=== PATIENT | female | born 2000 | race Caucasian/White ===

== ENCOUNTER 2018-09-26 22:39 | Emergency (ER) | payer SELFPAY ==
--- NOTE | 2018-09-26 23:50 | ULT ---
TRANSVAGINAL PELVIC ULTRASOUND WITH SU SCALE, COLOR FLOW AND SPECTRAL DOPPLER IMAGING 09/26/18 HISTORY: Right lower quadrant pain. FINDINGS: The uterus measures 8.1 x 5 x 5.3 cm. A single live intrauterine gestation is seen with measurements corresponding to an estimated gestational age of 6 weeks, 6 days and VINAY at 05/16/19. The crown-rump length measures 0.85 cm. The heart rate measures 125 beats per minute. The right ovary measures 3.8 x 2.4 x 2.6 cm and the left ovary measures 1.6 x 1.6 x 1.8 cm. Flow is d emonstrated to both ovaries. There is a 2 cm cyst in the right ovary. No free fluid is seen in the cu l-de-sac. IMPRESSION: Single live IUP of 6 weeks, 6 days estimated gestational age and VINAY at 05/16/19. POS: [facility]
[2018-09-28 19:02] LABS: Chlamydia by PCR Not Detected (NotDetected); GC by PCR Not Detected (NotDetected)
== END 2018-09-27 01:36 | disposition home or self-care (01) ==
LOC: ERS 22:39
DX: O20.0 Threatened abortion (principal); O23.41 Unspecified infection of urinary tract in pregnancy, first trimester; O99.331 Smoking (tobacco) complicating pregnancy, first trimester; F17.210 Nicotine dependence, cigarettes, uncomplicated; Z3A.01 Less than 8 weeks gestation of pregnancy
CPT/HCPCS: 36415; 76856; 86900; 86901; 87480; 87491; 87510; 87591; 87660

== ENCOUNTER 2019-01-22 10:35 | Outpatient (CLI) | payer MEDICAID ==
--- NOTE | 2019-01-22 16:11 | ULT ---
OBSTETRIC SONOGRAM: 01/22/19 HISTORY: evaluation. Second trimester. FINDINGS: Multiple transabdominal sonographic views of the gravid uterus show a single intrauterine gestation i n breech presentation. Cervix is closed and 3.0 cm. Amniotic fluid is within normal limits. Placenta is posterior. The superficial surface of the placenta shows prominent venous lakes. Nonspecific findi ng. Amniotic fluid is within normal limits. spine and kidneys are intact as visualized. Four c hamber heart shows motion at 134 beats per minute. Three vessel cord shows a normal insertion. No gr oss intracranial abnormalities. Measurements are as follows: Biparietal diameter 22 weeks, 3 days Head circumference 23 weeks, 2 days Abdominal circumference 23 weeks, 1 day Femur length 24 weeks, 0 days [place] 54th percentile. IMPRESSION: Single viable intrauterine gestation. Estimated gestational age based on today's sonogram is 23 weeks , 2 days. POS: [facility]
== END 2019-01-22 10:36 | disposition home or self-care (01) ==
LOC: BICULT 10:35
DX: Z34.02 Encounter for supervision of normal first pregnancy, second trimester (principal)
CPT/HCPCS: 76805

== ENCOUNTER 2019-04-02 13:40 | Outpatient (CLI) | payer OTHER ==
--- NOTE | 2019-04-02 14:28 | ULT ---
EXAM: OB ultrasound COMPARISON: 01/22/2019 HISTORY: Intrauterine gestation. Evaluate growth. IUGR. TECHNIQUE: Multiplanar grayscale and color Doppler transabdominal sonographic images are obtained. FINDINGS: There is a single intrauterine gestation in cephalic presentation. Cardiac Doppler demonstr ates heart tones with a heart rate of 140 beats per minute. The placenta is located posterior without evidence of placenta previa. There is a normal amount of amniotic fluid with an amn iotic fluid index of 13.6 centimeters. The cervix is obscured due to shadowing from head. biometry measurements: BPD 7.97 cm -- 32 weeks HC 30.12 cm -- 33 weeks 3 days AC 27.96 cm -- 32 weeks 1 day FL 6.22 cm -- 32 weeks 2 days The estimated gestational age by ultrasound is 32 weeks 4 days with an VINAY on05/24/2019. Gestational age by the last menstrual period is 32 weeks 4 days. The estimated weight by ultrasound is 1927 g (4 pounds, 4 ounces). This represents 15 percentil e for weight. A 4 chambered heart, stomach, and urinary bladder demonstrate a normal sonographic appearance. There is evidence of a three-vessel cord. This examination was not performed for evaluation of the anatomical structures, and the remainder the anatomical structures were not imaged on this exam . No anomalies are seen on the provided images. IMPRESSION: 1. Single intrauterine gestation in cephalic presentation with heart tones documented. Estimat ed gestational age by ultrasound is 32 weeks 4 days. 2. Estimated weight is 1927 g (4 pounds, 4 ounces). There has been interval growth when compare d to prior study. 3. Amniotic fluid index is 13.6 centimeters.
== END 2019-04-02 13:41 | disposition home or self-care (01) ==
LOC: BICULT 13:40
PROVIDERS: ATTEND Family Medicine
DX: O36.5930 Maternal care for other known or suspected poor fetal growth, third trimester, not applicable or unspecified (principal); Z3A.32 32 weeks gestation of pregnancy
CPT/HCPCS: 76815

== ENCOUNTER 2019-05-12 02:06 | Day surgery (SDC) | payer MEDICAID ==
[2019-05-12 02:32] VITALS: BMI 25.0
[2019-05-12] MEDS ORDERED: hydrALAZINE 20 MG/ML VIAL SLOW IVP PRN (03:44)
[2019-05-12] MEDS ORDERED: Ondansetron ODT 8 MG TAB SL SCH (03:45)
[2019-05-12] MEDS ORDERED: Morphine 10 MG/ML VIAL IM SCH (03:45)
--- NOTE | 2019-05-12 04:12 | PRG ---
DATE OF SERVICE: 05/12/2019 PRIMARY OB: Rinku Chavarria MD CHIEF COMPLAINT: Abdominal pains. HISTORY OF PRESENT ILLNESS: Patient is a 19-year-old G1, P0 female with an intrauterine at 39 weeks, presenting to Labor and Delivery with onset of abdominal pains. She said it began about 7 o'clock this evening. She reports the contractions as being about every 7 to 10 minutes and has since come together to every 2 to 3 minutes. She reports she was checked last week by her primary provider, Dr. Chavarria, and was closed. She is having some bloody show. She denies any fever or fall, headache, chest pain, shortness of breath, nausea, vomiting, diarrhea, constipation, hip problems, knee problems, muscle weakness, or any new rashes. She denies any leaking of fluid, burning with urination. PAST MEDICAL HISTORY: Negative. PAST SURGICAL HISTORY: She had a breast biopsy. ALLERGIES: NO KNOWN DRUG ALLERGIES. MEDICATIONS: vitamins. SOCIAL HISTORY: Positive for tobacco use about 4 cigarettes a day. Denies drug or alcohol use. OB LABS: Unavailable at the time of dictation. REVIEW OF SYSTEMS: Per HPI. PHYSICAL EXAMINATION: VITAL SIGNS: Blood pressure is 119/80, heart rate of 83, respiratory rate of 18 , and temperature 97.7. GENERAL: She appears to be in some distress. She is alert, oriented, cooperative, and pleasant to interact with. HEAD: Normocephalic, atraumatic. LUNGS: Clear to auscultation bilaterally. HEART: Has regular rate and rhythm. ABDOMEN: Gravid and soft, nontender to palpation. EXTREMITIES: Nontender and nonedematous. PELVIS: Cervix per nursing staff is 2, 25%, -2 station. heart tracing shows the fetus with a baseline in the 130s with moderate long-term variability. Positive accelerations. No decelerations. She is having contractions about every 2 minutes. ASSESSMENT AND PLAN: Patient is a 19-year-old primipara with intrauterine at 39 weeks presenting with uterine contractions, is likely experiencing late in labor. The Patient was out of town about 1 hour. We will plan on rechecking her 3 hours from the moment of her first exam to see if she has made any significant change. Patient has been offered pain medication, which she has declined. Fetus has an overall category 1 tracing. Addendum: no cervical change after three hours. pt discharged home with term precautions. f/u with primary ob as scheduled. Job ID: [id number] MTDD
[2019-05-12 04:26] LABS: Bilirubin Negative (Negative); Blood, Urine Trace (Negative); Clarity Turbid (Clear); Glucose, Urine (Dipstick) Normal (Negative); Leukocyte 75 Leu/uL (Negative); Nitrite Negative (Negative); Protein, Urine (Dipstick) 30 mg/dL (Neg-Trace); Squamous Epithelial 0-3 HPF (0-3); Urobilinogen 3 mg/dL (Less than 2)
[2019-05-12 04:38] LABS: Bacteria/HPF 1+ HPF (None Seen)
[2019-05-12 04:43] LABS: ALT (SGPT) Less than 7 U/L (8-55); AST (SGOT) 10 U/L (5-34); Albumin 3.5 g/dL (3.5-5.0); Alkaline Phosphatase 137 U/L (40-110); Anion Gap 16 mmol/L (10-20); BUN (Urea Nitrogen) 4 mg/dL (7.0-18.7); Bilirubin, Total 0.5 mg/dL (0.2-1.2); Calc. Creatinine Clearance 159 mL/min (70-130); Calcium 8.8 mg/dL (7.8-10.44); Carbon Dioxide 18 mmol/L (22-29); Chloride 106 mmol/L (98-107); Estimated GFR-MDRD Greater than 90; Globulin 3.2 g/dL (2.4-3.5); Glucose 98 mg/dL (70-105); Potassium 3.6 mmol/L (3.5-5.1); Protein, Total 6.7 g/dL (6.0-8.3); Sodium 136 mmol/L (136-145)
== END 2019-05-12 06:05 | disposition home or self-care (01) ==
LOC: L&D/OP 02:06
PROVIDERS: ATTEND Family Medicine
DX: O47.1 False labor at or after 37 completed weeks of gestation (principal); O46.93 Antepartum hemorrhage, unspecified, third trimester; O99.333 Smoking (tobacco) complicating pregnancy, third trimester; F17.210 Nicotine dependence, cigarettes, uncomplicated; Z3A.39 39 weeks gestation of pregnancy; Z88.8 Allergy status to other drugs, medicaments and biological substances
CPT/HCPCS: 36415; 80053; 81001; J2270

== ENCOUNTER 2019-05-12 19:56 | Inpatient (IN) | payer MEDICAID ==
[2019-05-12 20:51] VITALS: BMI 24.2
[2019-05-12 20:56] LABS: Hemoglobin 11.7 g/dL (12.0-16.0); Mean Corpuscular HGB CONC 34.7 g/dL (32.0-36.0); Mean Corpuscular Hemoglobin 32.3 pg (27.0-31.0); Mean Corpuscular Volume 93.1 fL (78.0-98.0); Mean Platelet Volume 9.6 fL (7.4-10.4); Platelet Count 270 thou/uL (130-400); RBC Distribution Width 11.5 % (11.5-14.5); Red Blood Cell (RBC) Count 3.63 mill/uL (4.20-5.40); White Blood Cell (WBC) Count 18.3 thou/uL (4.8-10.8)
[2019-05-12] MEDS ORDERED: Ondansetron PF 4 MG/2 ML Vial IVP PRN ×2 (21:09→21:26)
[2019-05-12] MEDS ORDERED: HYDROcodone/Acetaminophen 5/325 mg Tablet PO PRN ×2 (21:09)
[2019-05-12] MEDS ORDERED: Lidocaine 1% (PF) 30 ML VIAL SC PRN (21:09)
[2019-05-12] MEDS ORDERED: Butorphanol Tartrate 1 MG/ML VIAL SLOW IVP PRN (21:09)
[2019-05-12] MEDS ORDERED: Ibuprofen 800 MG TAB PO PRN (21:09)
[2019-05-12] MEDS ORDERED: Promethazine HCl 25 MG/ML VIAL IM PRN ×2 (21:09→21:26)
[2019-05-12] MEDS ORDERED: hydrALAZINE 20 MG/ML VIAL SLOW IVP PRN (21:09)
[2019-05-12] MEDS ORDERED: Fentanyl 4 mcg/Bup 0.1% Cadd 100 ML ONE (21:11)
--- NOTE | 2019-05-12 21:13 | PDOC.EVN ---
Event Note - Event Note Event Note: OBGYN sales and customer relations rep Admit H&P dictated Patient seen at bedside by me at 2100 Orders in
[2019-05-12] MEDS: Lactated Ringer's 1,000 ML IV SCH (21:20)
[2019-05-12] MEDS ORDERED: Fentanyl 100 MCG/2 ML VIAL ONE (21:23)
[2019-05-12] MEDS ORDERED: Bupivacaine 0.5% 10 ML VIAL ONE (21:23)
[2019-05-12 21:25] LABS: Syphilis Antibody Nonreactive (Nonreactive); Syphilis Antibody Index 0.02 S/CO (<1.00 Non-Reactive)
[2019-05-12] MEDS ORDERED: Fentanyl 100 MCG/2 ML VIAL I-THECAL SCH (21:25)
[2019-05-12] MEDS ORDERED: diphenhydrAMINE 50 MG/ML VIAL IVP PRN (21:26)
[2019-05-12] MEDS ORDERED: Lactated Ringer's 500 ML IV PRN (21:26)
[2019-05-12] MEDS ORDERED: ePHEDrine/0.9% NaCl/PF SYRINGE 50 mg/10 ml SLOW IVP PRN (21:26)
[2019-05-12] MEDS ORDERED: Bupivacaine 0.25% 10 ML VIAL EPIDURAL SCH (21:26)
[2019-05-12] MEDS ORDERED: Acetaminophen 325 MG TAB PO PRN (21:26)
[2019-05-12] MEDS ORDERED: Naloxone HCl 0.4 mg/ml Vial IVP PRN ×2 (21:26)
[2019-05-12] MEDS ORDERED: Communication Order-Pharmacy FS SCH (21:30)
[2019-05-12] MEDS ORDERED: Fentanyl 4 mcg/Bupivacaine 0.1% Cassette 100 ML EPIDURAL SCH (21:30)
--- NOTE | 2019-05-12 21:47 | HP ---
TIME OF EVALUATION: [address]arria. CHIEF COMPLAINT: Contractions and leakage of fluid at approximately 1800. LOCATION: Labor and Delivery. HISTORY OF PRESENT ILLNESS: In brief, this is a 19-year-old G2, P0, at 39 weeks and 0 days with an EDC of 05/19/2019, here with contractions and a complaint of leakage of fluid since about 1800. Otherwise, no other issues or complications. REVIEW OF SYSTEMS: Complete review of systems was evaluated and is otherwise negative unless specified in the HPI. PAST MEDICAL HISTORY: Negative. PAST SURGICAL HISTORY: Includes left breast biopsy. ALLERGIES: INCLUDE "PEPTO-BISMOL." SOCIAL HISTORY: Negative for illicit substances. MEDICATIONS: None. PHYSICAL EXAMINATION: VITAL SIGNS: Her vital signs show a blood pressure of 124/88, pulse is 94, temperature is 98.2, and O2 saturation on room air is 98%. Clinically, there is no evidence of acute distress. ABDOMEN: Soft, nontender, and gravid. Cervical exam by initial RN evaluation shows a cervix of 4 cm dilated, 80% effaced, -1 station with gross evidence of clear fluid compatible with rupture of membranes. Of note, the cervical exam was 2 cm, last 24 hours ago. On monitor, heart tones are in the 130s to 140s, moderate variability, and no pathological decelerations. Pulse ox is noted on the monitor and is distinct from the heart rate tracing. Tocodynamometer shows contractions about every 3 to 5 minutes and these are again on external tracing. ASSESSMENT: This is a 19-year-old, at full term with early labor (latent phase) with unknown GBS. PLAN: 1. Admit to Labor and Delivery. 2. Routine labs. 3. As we do not have GBS, Dr. Chavarria will be contacted for record evaluation. 4. If records are not available, they will default to risk factors for GBS per ACOG protocol. 5. Await spontaneous labor and Pitocin augmentation may be considered if necessary. Job ID: [id number]
[2019-05-12 23:13] LABS: HIV (1/2) Antibody/Antigen Non-Reactive (NonReactive); HIV 1/2 INDEX 0.12 S/CO (<1.00); Hep B Surf Ag Non-Reactive S/CO (NonReactive)
[2019-05-13] MEDS: NS / Oxytocin 40 units/1000ml 1,000 ML IV PRN ×2 (04:38→05:49)
[2019-05-13] MEDS ORDERED: diphenhydrAMINE 25 MG CAP PO PRN (11:05)
[2019-05-13] MEDS ORDERED: Milk Of Magnesia 30 ML UDCUP PO PRN (11:05)
[2019-05-13] MEDS ORDERED: Ondansetron PF 4 MG/2 ML Vial IVP PRN (11:05)
[2019-05-13] MEDS ORDERED: Bisacodyl 10 MG SUPP PR PRN (11:05)
[2019-05-13] MEDS ORDERED: Benzocaine-Menthol 82.5 ML CAN TOP PRN (11:05)
[2019-05-13] MEDS ORDERED: HYDROcodone/Acetaminophen 5/325 mg Tablet PO PRN (11:05)
[2019-05-13] MEDS ORDERED: NS / Oxytocin 40 units/1000ml 1,000 ML IV SCH (11:05)
[2019-05-13] MEDS ORDERED: hydrALAZINE 20 MG/ML VIAL SLOW IVP PRN (11:05)
[2019-05-13] MEDS ORDERED: Promethazine HCl 25 MG/ML VIAL IM PRN (11:05)
[2019-05-13] MEDS ORDERED: Lanolin Ointment 7 GM TUBE TOP PRN (11:05)
[2019-05-13] MEDS: Lactated Ringer's 1,000 ML IV SCH (13:08)
[2019-05-13] MEDS: Ibuprofen 800 MG TAB PO SCH ×2 (13:47→21:34)
[2019-05-13] MEDS: Ferrous Sulfate 325 MG TAB PO SCH (17:19)
[2019-05-13] MEDS: Docusate Calcium (SURFAK) 240 MG CAP PO SCH (21:34)
[2019-05-13] MEDS: HYDROcodone/Acetaminophen 5/325 mg Tablet PO PRN (21:34)
[2019-05-14 05:21] LABS: Mean Corpuscular HGB CONC 34.3 g/dL (32.0-36.0); Mean Corpuscular Hemoglobin 32.7 pg (27.0-31.0); Mean Corpuscular Volume 95.4 fL (78.0-98.0); Mean Platelet Volume 9.3 fL (7.4-10.4); Platelet Count 200 thou/uL (130-400); RBC Distribution Width 11.4 % (11.5-14.5); Red Blood Cell (RBC) Count 2.75 mill/uL (4.20-5.40); White Blood Cell (WBC) Count 16.1 thou/uL (4.8-10.8)
[2019-05-14] MEDS: Ibuprofen 800 MG TAB PO SCH ×3 (06:16→21:31)
[2019-05-14] MEDS: Ferrous Sulfate 325 MG TAB PO SCH ×2 (08:48→17:26)
[2019-05-14] MEDS: Prenatal Vitamin 1 TAB PO SCH (08:48)
[2019-05-14] MEDS: Docusate Calcium (SURFAK) 240 MG CAP PO SCH ×2 (08:48→21:31)
[2019-05-14] MEDS ORDERED: Adacel (T-DAP) 0.5 ML SYRINGE IM ONE (11:05)
[2019-05-14] MEDS: HYDROcodone/Acetaminophen 5/325 mg Tablet PO PRN ×2 (16:24→21:34)
[2019-05-15] MEDS: Ibuprofen 800 MG TAB PO SCH (06:38)
[2019-05-15] MEDS: HYDROcodone/Acetaminophen 5/325 mg Tablet PO PRN (06:39)
[2019-05-15 07:56] VITALS: BP 102/62; TEMP 98.6
[2019-05-15] MEDS: Prenatal Vitamin 1 TAB PO SCH (09:17)
[2019-05-15] MEDS: Ferrous Sulfate 325 MG TAB PO SCH (09:17)
[2019-05-15] MEDS: Docusate Calcium (SURFAK) 240 MG CAP PO SCH (09:18)
== END 2019-05-15 11:20 | disposition home or self-care (01) | DRG 807 ==
LOC: L&D/OP 19:56 → L&D 20:44 → 3SW 05-13 12:12 → UNDODISIN 05-15 10:04
PROVIDERS: ADMIT Obstetrics & Gynecology; ATTEND Obstetrics & Gynecology
PROC: 10E0XZZ Delivery of Products of Conception, External Approach (ICD-10-PCS; principal; 2019-05-12)
DX: O99.334 Smoking (tobacco) complicating childbirth (principal); Z37.0 Single live birth; F17.210 Nicotine dependence, cigarettes, uncomplicated; O71.82 Other specified trauma to perineum and vulva; O70.0 First degree perineal laceration during delivery; Z3A.39 39 weeks gestation of pregnancy
CPT/HCPCS: 36415; 51702; 80053; 81001; 85027; 86780; 86850; 86900; 86901; 87340; 87389; 96372; 99283; 99285; J2270; J3010; J3490

== ENCOUNTER 2024-06-02 15:19 | Emergency (ER) | payer MEDICAID, OTHER ==
[2024-06-02 15:47] LABS: Bacteria/HPF 1+ HPF (None Seen); Bilirubin Negative (Negative); Blood, Urine Negative (Negative); CAUTI Indications for Culture Dysuria,urgency,freq; Clarity Clear (Clear); Glucose, Urine (Dipstick) Normal (Negative); Ketone, Urine Negative (Negative); Leukocyte Negative Leu/uL (Negative); Nitrite Negative (Negative); Protein, Urine (Dipstick) Negative (Neg-Trace); RBC/HPF 0-3 HPF (0-3); Specific Gravity, Urine 1.001 (1.002-1.036); Squamous Epithelial 0-3 HPF (0-3); Urobilinogen Normal mg/dL (Less than 2); WBC/HPF 0-3 HPF (0-3)
[2024-06-02 15:48] LABS: Pregnancy Test - Urine (BHCG) POSITIVE (Negative); Pregu Control Background? CLEAR/WHITE (CLR/WHITE); Pregu Control Bar Appear? YES (CONTROL BAR); Specific Gravity 1.001 (1.002-1.036); Urine Culture Reflex No No
[2024-06-02 16:44] LABS: #Basophils 0.04 10x3/uL (0.0-0.2); %Basophils 0.4 % (0.0-1.0); %Eosinophils 0.6 % (0.0-10.0); %Lymphocytes 22.5 % (21.0-51.0); %Monocytes 5.1 % (0.0-10.0); %Neutrophils 70.9 % (42.0-75.0); Hematocrit 31.1 % (36.0-47.0); Hemoglobin 10.4 g/dL (12.0-16.0); Mean Corpuscular HGB CONC 33.4 g/dL (32.0-36.0); Mean Corpuscular Hemoglobin 30.5 pg (27.0-31.0); Mean Corpuscular Volume 91.2 fL (78.0-98.0); Mean Platelet Volume 9.5 fL (7.4-10.4); Platelet Count 285 10x3/uL (130-400); RBC Distribution Width 12.5 % (11.5-14.5); Red Blood Cell (RBC) Count 3.41 mill/uL (4.20-5.40)
[2024-06-02 16:57] LABS: ALT (SGPT) 6 U/L (8-55); AST (SGOT) 9 U/L (5-34); Albumin 2.9 g/dL (3.5-5.0); Alkaline Phosphatase 49 U/L (40-110); Anion Gap 11 mmol/L (10-20); BUN (Urea Nitrogen) 4 mg/dL (7.0-18.7); Bilirubin, Total 0.4 mg/dL (0.2-1.2); Calc. Creatinine Clearance 0 mL/min (70-130); Calcium 8.3 mg/dL (7.8-10.44); Carbon Dioxide 20 mmol/L (22-29); Chloride 110 mmol/L (98-107); Estimated GFR 127; Globulin 3.2 g/dL (2.4-3.5); Glucose 75 mg/dL (70-105); Potassium 3.7 mmol/L (3.5-5.1); Protein, Total 6.1 g/dL (6.0-8.3); Sodium 137 mmol/L (136-145)
== END 2024-06-02 17:26 | disposition home or self-care (01) ==
LOC: ERS 15:19
DX: O44.12 Complete placenta previa with hemorrhage, second trimester (principal); O99.891 Other specified diseases and conditions complicating pregnancy; R82.71 Bacteriuria; Z3A.18 18 weeks gestation of pregnancy; Z87.891 Personal history of nicotine dependence
CPT/HCPCS: 36415; 76815; 80053; 81001; 81025; 84702; 85025; 86850; 86900; 86901